=== PATIENT | male | born 1985 | race Caucasian/White ===

== ENCOUNTER 2018-05-20 10:50 | Emergency (ER) | payer OTHER | END 2018-05-20 12:52 | disposition home or self-care (01) | LOC: M ED 10:50 | DX: J20.9 Acute bronchitis, unspecified (principal); J45.909 Unspecified asthma, uncomplicated; Z88.0 Allergy status to penicillin | CPT/HCPCS: 99283 ==

== ENCOUNTER 2018-06-15 20:06 | Emergency (ER) | payer OTHER ==
[2018-06-15] MEDS: AUGMENTIN 875 MG TAB PO (21:45)
[2018-06-15] MEDS: IBUPROFEN 800 MG TAB PO (21:45)
== END 2018-06-15 22:00 | disposition home or self-care (01) ==
LOC: M ED 20:06
DX: K02.9 Dental caries, unspecified (principal)
CPT/HCPCS: 99282

== ENCOUNTER 2018-10-13 17:59 | Emergency (ER) | payer OTHER ==
[~2018-10-13] VITALS: Ht 182.9 cm; Wt 86.4 kg
[~2018-10-13 17:59] MED LIST: AUGM875T28 PO; IBUP80TA PO; PENI500T PO; PROAAER10 INH; ZITHTAB PO
[2018-10-13 20:50] VITALS: BP 130/63
[2018-10-13] MEDS ORDERED: PENICILLIN V POTASSIUM 500 MG TAB PO ONE (21:45)
[2018-10-13] MEDS ORDERED: PENI500T PO (21:55)
[2018-10-13] MEDS ORDERED: IBUP80TA PO (21:56)
== END 2018-10-13 22:02 | disposition home or self-care (01) ==
LOC: M ED 17:59
DX: K04.7 Periapical abscess without sinus (principal); K02.9 Dental caries, unspecified